=== PATIENT | female | born 1975 | race Caucasian/White ===

== ENCOUNTER 2021-10-22 19:12 | Emergency (ER) | payer OTHER, BC ==
[~2021-10-22] VITALS: Ht 162.6 cm; Wt 75.8 kg
--- OUTSIDE RECORDS SUMMARY | 2021-10-22 19:20 | XMS ---
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 EFrank VISIT COUNT (12 MO.) 1 [facility] [place] [address] ESPERANZA Arellano Leti TOTAL 2 NOTE: Visits indicate total known visits. ED/UCC VISIT TRACKING (12 MO.) 10/22/2021 19:12 ESPERANZA Guillory OR TYPE: Emergency COMPLAINT: - WOUND CHECK 10/21/2021 20:52 [facility] [place] TYPE: Emergency DIAGNOSES: - DOG BITE LEFT ANKLE - Bitten by dog, initial encounter - Laceration without foreign body, unspecified ankle, initial encounter INPATIENT VISIT TRACKING (12 MO.) No inpatient visits to display in this time frame [email or web address]
[2021-10-22] MEDS ORDERED: ONE DAILY WOME1 EACH PO (20:43)
[2021-10-22] MEDS ORDERED: LIPITOR20 MG PO (20:44)
[2021-10-22] MEDS ORDERED: TRAZODONE HCL50 MG PO (20:44)
== END 2021-10-22 23:18 | disposition home or self-care (01) ==
LOC: ED 19:12
DX: S91.052A Open bite, left ankle, initial encounter (principal); W54.0XXA Bitten by dog, initial encounter; E78.00 Pure hypercholesterolemia, unspecified; Z79.899 Other long term (current) drug therapy
CPT/HCPCS: 99283; A9270

== ENCOUNTER 2021-10-30 10:43 | Inpatient (IN) | payer BC ==
[~2021-10-30] VITALS: Ht 162.6 cm; Wt 77.5 kg
--- NOTE | ~2021-10-30 | OR ---
[facility] [address] [place], [place] [address] Draft DATE OF OPERATION: 10/30/2021 SURGEON: Bertrand Rg MD PREOPERATIVE DIAGNOSES: 1. Dog bite injury to left ankle. 2. Infection of ankle and necrotic tissue of dog bite wound to ankle. POSTOPERATIVE DIAGNOSES: 1. Dog bite injury to left ankle. 2. Infection of ankle and necrotic tissue of dog bite wound to ankle. 3. Complete disruption of Achilles tendon with inflamed and likely infected soft tissue. PROCEDURES: 1. Exam under anesthesia. 2. Debridement of skin, fat, muscle and portion of tendon of left ankle. 3. Pulsed irrigation lavage (low pressure) of wound. 4. Attempted Achilles tendon repair (abandoned). 5. Wound VAC application. ANESTHESIA: Spinal anesthetic with IV sedation, Kerline aHrdwick CRNA INDICATIONS: This 46-year-old woman suffered a dog bite injury to the left ankle by a pit bull in [place], [place] on October 21. She was seen in the [facility] and given antibiotic prescription and a tetanus shot. She had increasing pain and presented to [facility] Room and evaluated by Dr. Barrera on October 22, 2021 where Augmentin antibiotic was prescribed though not available locally at her pharmacy. She subsequently saw RYANN Stacy at [facility] where she was recognized to have a very foul-smelling wound. Wound packing had been in place. She was referred to me and I saw her on an urgent walk-in basis today where she was found to have foul smelling wound necrosis and high suspicion for probable Achilles tendon injury in addition to soft tissue injury and infection. She does have swelling on the dorsum of her foot and findings highly suggestive of necrotic tissue requiring debridement and so forth. She has been directly admitted to the hospital, begun on antibiotic meropenem. Lab studies evaluated and now to undergo exam under anesthesia, debridement, irrigation, PATIENT NAME: FEDERICO TERESA OPERATIVE REPORT DATE OF : 75 REPORT #: [id number] PHYSICIAN: BERTRAND RG MD PCP: RALEIGH MADRID PA-C REPORT IS CONFIDENTIAL AND NOT TO BE RELEASED WITHOUT AUTHORIZATION [facility] [address] [place], [place] [address] Draft and other indicated procedures. The patient understands the risk of bleeding, infection, failure to control the problem, long-term disability, Achilles tendon is noted to be transected and other unforeseen complications not readily apparent at this time. Understand this, she wished to proceed. FINDINGS: There were multiple punctures in the posterior aspect of the left ankle area. A bridge of tissue the underlying dominant injury which included a complete transection of the Achilles tendon. Necrotic tissue was associated with this as was infection most likely. Complete debridement to viable tissue was undertaken. Only a small amount of Achilles tendon required debridement, though it clearly was nonviable and likely secondarily infected. An attempt at the Achilles tendon repair with a Worcester stitch was unsuccessful as it may have been predicted and ultimately the remnant of the Achilles tendon was secured with a marking suture allowed to retreat beneath the subcutaneous space proximally. That associated with the ankle itself had a Prolene stitch attached as well. A bridge of soft tissue that remained was salvaged as it appeared viable, though it may be threatened ultimately. A wound VAC dressing was ultimately applied. DESCRIPTION OF PROCEDURE: The patient was brought to the operating room, given a spinal anesthetic and placed in the prone cookie-knife position. Antibiotic meropenem had been initiated. In the prone position, the dressing over the ankle was removed and photograph was taken on available technology. The wound was disengage to have some packing material and had extremely foul smell. She was prepared with a Betadine based solution and draped sterilely. Examination showed mucopurulent discharge and obviously necrotic fatty tissue and muscle tissue. There are three dominant lacerations with a bridge of tissue between the largest. The bridge of tissue quite clearly obscured the Achilles tendon and it was divided anatomically to allow for its survival likely. Upon doing this, the wound could be fully evaluated and clearly showed complete transection of the Achilles tendon in the distal most portion. The tendon was elevated and gently debrided of some necrotic tissue. Gram stain and cultures were obtained of the depths of the wounds. The necrotic tissue was debrided, which included portions of skin, part of the tendon of the Achilles though sparing as much as possible as well as the base of the wound including fatty tissue and so on. Once fully debrided of necrotic tissue, a pulse preparation plant supervisor at a low setting was used to cleanse the wound both beneath the proximal flap and elsewhere. Once completely cleansed, the wound appeared to be completely viable and without gross evidence of infection or necrosis. PATIENT NAME: FEDERICO TERESA OPERATIVE REPORT DATE OF : 75 REPORT #: [id number] PHYSICIAN: BERTRAND RG MD PCP: RALEIGH MADRID PA-C REPORT IS CONFIDENTIAL AND NOT TO BE RELEASED WITHOUT AUTHORIZATION [address] [address] Draft Given the length of time since her transected tendon and in the face of inflammation, edema and likely infection, tendon repair at this time was deemed unlikely. Nevertheless, an attempt was undertaken with 0 Prolene suture in a Chaya suture technique to reattach the tendon to the talar area with significant plantar flexion to take tension off the repair. It quickly disrupted from its repair side and it was clear that definitive repair would likely require a graft or other method particularly in the face of recent infection and inflammation. The Prolene suture is allowed to remain with the newtok tendon proximally and at the insertion site on the talus inferiorly. A flap of tissue that remained was considered viable for wound coverage and was secured with interrupted 3-0 nylon suture. Portions of the wound that could be reasonably approximated without hazard of infection were undertaken. The resultant defect was approximately a 5 x 5 cm. In the lateral aspect to the area already operated on was a linear laceration, this too was debrided in a similar way, irrigated and not able to be closed primarily. The wound VAC dressing was deemed most appropriate for management at this point. The sponge was cut to appropriate size and configuration for both the wounds and the bridge of sponge applied over a small OpSite between the two areas in question. The wound VAC was applied 220 mm continuous pressure and held well. The patient was ultimately returned to the supine position, transferred to recovery room in good condition having suffered no complications. Sponge, needle, and instrument counts were reported as correct x3. MD GONZALEZ Tian/RENÉE /[id number] cc: RYANN Stacy MD Chloe K Norris, PA-C Copies: JUSTINA BARRERA MD PATIENT NAME: FEDERICO TERESA OPERATIVE REPORT DATE OF : 75 REPORT #: [id number] PHYSICIAN: BERTRAND RG MD PCP: RALEIGH MADRID PA-C REPORT IS CONFIDENTIAL AND NOT TO BE RELEASED WITHOUT AUTHORIZATION [address] [place], [place] [address] Draft RALEIGH MADRID PA-C ~ PATIENT NAME: FEDERICO TERESA OPERATIVE REPORT DATE OF : 75 REPORT #: [id number] PHYSICIAN: BERTRAND RG MD PCP: RALEIGH MADRID PA-C REPORT IS CONFIDENTIAL AND NOT TO BE RELEASED WITHOUT AUTHORIZATION
[~2021-10-30 10:43] MED LIST: LIPITOR20 MG PO; ONE DAILY WOME1 EACH PO; TRAZODONE HCL50 MG PO
--- NOTE | 2021-10-30 11:31 | NUR ---
PT DIRECT ADMIT FOR SURGERY TO LLE DOG BITE. PT ASSESSMENT COMPLETED. PT STATES DRESSING CHANGE COMPLETED EARLIER TODAY. WOUND IS COVERED WITH GAUZE AND COBAN. CALL LIGHT WITHIN REACH.
--- NOTE | 2021-10-30 11:40 | NUR ---
RT COLLECTED RAPID COVID 19 SWAB WITH NO COMPLICATIONS AT THIS TIME.
--- NOTE | 2021-10-30 15:30 | NUR ---
10/30/21 1530 Kimber Claudio 1504 PT ARRIVED IN PACU SLEEPY WITH NO C/O'S. WOUND VAC IN PLACE TO L ANKLE WITH SUCTION SET AT 120MMHG. 1515 C/O SORE BACK. REPOSITIONED IN BED.
--- NOTE | 2021-10-30 16:14 | NUR ---
PT RETURNED FROM SURGERY. WOUND VAC TO LLE WITH LLE ELEVATED. IV FLUIDS RUNNING AT 125ML/HR. PT IS A/O, RESPIRATIONS EVEN AND REGULAR. DENIES NEEDS ATT.
--- NOTE | 2021-10-30 17:40 | NUR ---
LEFT FOOT ASSESSMENT COMPLETED. WOUND VAC INTACT AND SUCTIONING. +2 EDEMA PRESENT. CMS INTACT. VITALS STABLE. TORADOL ADMIN FOR 6/10 THROBBING LEFT FOOT PAIN. WILL CONTINUE TO MONITOR.
--- NOTE | 2021-10-30 18:16 | NUR ---
TO PT ROOM TO ANSWER CALL LIGHT. PT ASSISTED TO BEDSIDE COMMODE. PT NWB TO LLE. TRANSFERS WELL WITH ONE PERSON ASSIST. WOUND VAC RUNNING. IV FLUIDS RUNNING. CALL LIGHT WITHIN REACH.
--- NOTE | 2021-10-30 19:02 | NUR ---
SHIFT REPORT RECEIVED FROM DAYSHIFT RN LALO AND DANIELLE AT BEDSIDE. pt AWAKE AND RESTING IN BED, LLE ELEVATED IN BED WITH PILLOW, CONT. WOUND VAC IN PLACE TO 120MMHG. SCANT SEROSANGUINEOUS DRAINAGE IN CANISTER. WOUND VAC DRESSING WNL, +2 EDEMA NOTED IN LEFT ANKLE/FOOT. pt REPORTS TOLERABLE PAIN, DID NOT RATE. IV SITE WNL, FLUIDS INFUSING DIRECTED. NO NEEDS OR CONCERNS VERBALIZED, CALL LIGHT IN REACH.
--- NOTE | 2021-10-30 20:45 | NUR ---
ASSESSMENT COMPLETE, SCHEDULED IV ABX INFUSING DIRECTED VIA Y-SITE WITH MAINTENACNE FLUIDS. IV SITE WNL, BRISK BLOOD RETURN NOTED. pt A/OX4, SBA TO BSC TO VOID AND BACK TO BED. pt NON WT BEARING PER MD ORDERS, TOLERATED WELL. pt REPORTS INTEREST IN GETTING "A BOOT IF THE DOCTOR LETS ME". pt HAS A PT CONSULT REGARDING CRUTCHES, pt REPORTS SHE HAS CRUTCHES AT HOME. pt REPORTS PAIN TOLERABLE AT 2-3/10, DENIES NEED FOR PAIN MEDICATION. NO CHANGES TO WOUND VAC, LLE REMAINS ELEVATED. STRONG BILATERAL PEDAL PULSES NOTED, pt REPORTS SHE "IS STARTING TO GET FEELING BACK". CALL LIGHT IN REACH, JUICE AND FRESH WATER PROVIDED.
--- NOTE | 2021-10-30 23:35 | NUR ---
discussed scheduled toradol with jens from telepharmacy, pt given a 30mg dose in or and another 30mg dose on dayshift. kidney labs wnl, per jens from telepharmacy okay to give ordered 30mg dose. new bag iv fluids hung and infusing as directed, iv site wnl. no additional needs or concerns verbalized. cpox remains in place, spo2 and hr wnl. call light in reach.
--- NOTE | 2021-10-31 00:44 | NUR ---
iv abx complete, iv site remains wnl. iv maintenance fluids continue to infuse as directed. wound vac battery low, now charging into wall. pt resting in bed with eyes closed, rr even and unlabored. no distress noted. call light in reach, cpox in place, hr wnl, spo2 upper 90's on ra.
--- NOTE | 2021-10-31 02:23 | NUR ---
VSS AND I&O'S COMPLETE. IV SITE WNL, IV FLUIDS AND IV ABX INFUSING WNL. pt AWOKE TO VOICE, ENCORAGED TO TAKE DEEP BREATHS WHEN AWAKE. IS ALSO AT BEDSIDE AND ENCOURAGED TO USE, pt VERBALIZED UNDERSTANDING. pt UP TO VOID STAND PIVOT, 800MLS OUTPUT NOTED. CMS INTACT TO BLE, +2 EDEMA REMAINS NOTED TO LEFT ANKLE/FOOT. ELEVATED ABOVE HEART PER MD ORDERS, WOUND VAC REMAINS WNL. NO ADDITIONAL NEEDS, CALL LIGHT IN REACH.
--- NOTE | 2021-10-31 04:59 | NUR ---
pt HAD A LUPE OVERALL, SLEPT WELL THIS SHIFT. VSS, CPOX IN PLACE. pt POST-OP FOR I&D OF LEFT ANKLE/FOOT R/T INFECTED DOG BITE. A/OX4, VSS. PAIN CONTROLLED WITH SCHEDULED TORADOL. IV FLUIDS INFUSING W/ SCHEDULED IV ABX. pt VOIDING QS. TOLERATING REGULAR DIET, ENCOURAGE PO INTAKE. WOUND VAC TO LEFT ANKLE/FOOT, CONT SUCTION. LLE ELEVATED IN BED WITH PILLOWS. CMS INTACT. pt STAND PIVOT TO BSC, PT ORDER TO EVALUATE FOR CRUTCHES. CALLS APPROPRIATELY. POSSIBLE DC TODAY.
--- NOTE | 2021-10-31 05:40 | NUR ---
SCHEDULED IV TORADOL GIVEN, SEE EMAR. VSS AND I&O'S COMPLETE AND STABLE. pt UP SBA STAND PIVOT TO BSC AND BACK TO BED. FRESH WATER AND WARM BLANKET PROVIDED, CALL LIGHT IN REACH. NO ADDITIONAL NEEDS. LLE ELEVATED IN BED WITH PILLOWS X2, NO CHANGES TO WOUND VAC.
--- NOTE | 2021-10-31 07:19 | NUR ---
CLARIFIED IF RESULTS FOR BC AND/OR GRAM STAIN WERE IN. PER JARETT FROM LAB, BC ARE STILL PENDING BUT FINAL GRAM STAIN RESULTS WERE POSITIVE FOR GRAM + COCCI AND GRAM - BACILLI. DAYSHIFT RN GABBI AWARE IN REPORT, TO NOTIFY W/ ERMA. COPY ON FRONT OF CHART.
--- NOTE | 2021-10-31 08:42 | NUR ---
MORNING ASSESSMENT COMPLETE. WOUND VAC TO LEFT FOOT, DRESSING INTACT, CONTINUOUS SUCTION AT 120. ELEVATED ON PILLOWS ABOVE OF HEART. PT STATES PAIN IS 5/10 YET TOLERABLE, DENIES NEED FOR INTERVENTION AT THIS TIME. CALL LIGHT IN REACH. PT DENIES FURTHER NEEDS AT THIS TIME.
--- NOTE | 2021-10-31 09:00 | NUR ---
PT LAYING IN BED. VITALS AND IS AND OS COMPLETE. PT ICE PACK GIVEN. NO NEEDS AT THIS TIME. CALL LIGHT WITHIN REACH.
--- NOTE | 2021-10-31 10:44 | NUR ---
Pt sitting up in chair, left leg elevated on three pillows. Pt provided blankets, denies further needs at this time. Call light in reach.
--- NOTE | 2021-10-31 12:20 | NUR ---
Faxed chart to [facility] for auth for NPWT.
--- NOTE | 2021-10-31 12:32 | NUR ---
Pt sitting up in chair eating lunch. Informed patient of updated plan of care and egg crate mattress topper for bed. Pt verbalizing understanding. Denies further needs at this time. Call light in reach.
--- NOTE | 2021-10-31 12:55 | NUR ---
Received signed papers from Dr. Donato and chart faxed to [facility] for insurnce auth for wound vac.
--- NOTE | 2021-10-31 13:15 | NUR ---
PT ALERT, ORIENTED AND SITTING IN CHAIR WITH TV ON. PT PLEASANT, INFORMED ME SHE PLANS ON DC TODAY. SAID HER BACK WAS REALLY HURTING AND NEEDED TO GO HOME SO SHE COULD STAND UP MORE-THAT HELPS. INFORM EDWARD BRANCH OF PT'S STATEMENT AND THAT IV ALARM WAS ON. PT ALSO SAID SHE IS [employer] AND ATTENDS [facility], BUT DID NOT WANT VISIT FROM [facility] AT THIS TIME. GAVE BLESSING AND WILL FOLLOW
--- NOTE | 2021-10-31 14:20 | NUR ---
PT AWAKE IN CHAIR. DENIES NEEDS AT THIS TIME. CALL LIGHT IN REACH.
--- NOTE | 2021-10-31 16:10 | NUR ---
PT RESTING QUIETLY IN CHAIR WITH EYES CLOSED, RESPIRATIONS EVEN AND UNLBAORED. O2 SAT 100% LEFT LEG ELEVATED ON PILLOWS. CALL LIGHT IN REACH.
--- NOTE | 2021-10-31 17:30 | NUR ---
PT RESTING IN RECLINER WITH EYES CLOSED, RESPIRATIONS EVEN AND UNLABORED. LEG LEFT ELEVATED ON THREE PILLOWS, PT RECLINED. CALL LIGHT IN REACH.
--- NOTE | 2021-10-31 18:49 | NUR ---
PT C/O 09/18 FOOT PAIN, REQUESTED AND GIVEN PRN MOTRIN. EGG CRATE MATTRESS PROVIDED FOR BACK COMFORT. PT DENIES FURTHER NEEDS AT THIS TIME. CALL AMBER EASTMAN.
--- NOTE | 2021-10-31 19:35 | NUR ---
RECEIVED REPORT FROM GABBI @1910, PT IS LAYING IN BED. WOUND VAC RUNNING CONTINUOUSLY AT 120 MMHG, DRESSING INTACT. PT REPORTS PAIN 10/10 IN LEFT FOOT. PRN PERCOCET GIVEN (SEE EMAR). CALL LIGHT WITHIN REACH, WARM BLANKET PROVIDED, NO FURTHER NEEDS AT THIS TIME.
--- NOTE | 2021-10-31 20:00 | NUR ---
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 PT STATES PAIN HAS RESOLVED TO 1/10 IN LEFT FOOT. POSITIONED PILLOWS TO MAINTAIN FOOT ELEVATION. LEFT FOOT HAS SLIGHT WARMTH WITH +2 PITTING EDEMA. FOAM DRESSING REMAINS INTACT AND WOUNDVAC RUNNING CONTINUOUSLY AT 120 MMHG. VSS. PT REPORTS NO DIZZINESS OR NAUSEA. PT REPORTS NO NUMBNESS/TINGLING IN EXTREMETIES AND STRENGTH INTACT. VOIDING QUANTITY SUFFICIENT. CALL LIGHT WITHIN REACH, NO FURTHER NEEDS AT THIS TIME.
--- NOTE | 2021-10-31 21:15 | NUR ---
SCHEDULED IV ABX INFUSING DIRECTED, IV SITE WNL AND FLUSHES EASILY. SCHEDULED EVENING TRAZODONE ALSO GIVEN- SEE EMAR. pt THEN UP SBA TO BSC TO VOID, BACK TO BED. NO ADDITIONAL NEEDS, CALL LIGHT IN REACH.
--- NOTE | 2021-10-31 22:45 | NUR ---
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 PT IS RESTING WITH EYES CLOSED. RR EVEN AND UNLABORED. NO SIGNS OF DISTRESS. CALL LIGHT WITHIN REACH.
--- NOTE | 2021-11-01 00:55 | NUR ---
CLINICAL JUDGEMENT TO ALLOW PT TO REST, PUMP HAS BEEN SET TO TKO. PT STILL RESTING WITH EYES CLOSED. RESPIRATIONS ARE EVEN AND UNLABORED. NO DISTRESS. CALL LIGHT WITHIN REACH.
--- NOTE | 2021-11-01 02:22 | NUR ---
PT IS RESTING IN BED WITH EYES CLOSED. RESPIRATIONS ARE EVEN AND UNLABORED. NO DISTRESS. CALL LIGHT WITHIN REACH.
--- NOTE | 2021-11-01 03:00 | NUR ---
IN ROOM TO HANG NEW BAG OF MERREM (SEE EMAR). PT RESTING IN BED WITH EYES CLOSED. BREATHS ARE EVEN AND UNLABORED. NO SIGNS OF DISTRESS. WOUND VAC RUNNING WNL AT 120 MMHG CONTINUOUSLY. CALL LIGHT WITHIN REACH.
--- NOTE | 2021-11-01 06:59 | NUR ---
PERFORMED MORNING ASSESSMENT/VITALS. BP REMAINS SOFT SYSTOLIC. NO ACUTE CHANGES TO ASSESSMENT. CALLED TO NUTRITION TO UPDATE PT REQUEST FOR YOGURT/GRANOLA FOR BREAKFAST. PILLOWS REPOSITIONED UNDER LEFT FOOT. FOOT IS WARM WITH +2 EDEMA AND FAINT PULSES. WOUNDVAC ON CONTINUOUS SUCTION AT 120 MMHG WITH SCAN SEROSANGUINOUS OUTPUT. PAIN IS AT 5/10 IN LFT FOOT, PT REQUESTS IBUPROFEN. CALL LIGHT WITHIN REACH, WILL CONTINUE TO MONITOR.
--- NOTE | 2021-11-01 07:02 | NUR ---
UNEVENTFUL NIGHT FOR PT. PT SLEPT MAJORITY OF THE NIGHT. VSS. BLOOD PRESSURES RUN ON SOFT SIDE RANGING FROM LOW 100'S TO 90'S. PT GIVEN PRN PERCOCET AT BEGINNING OF THE SHIFT FOR 10/10 PAIN IN LEFT FOOT, AND IBUPROFEN THIS AM FOR 5/10 PAIN IN LEFT FOOT, MANAGED WELL WITH PRN MEDS. 2+ EDEMA AND SLIGHT WARMTH PRESENT IN LEFT FOOT. WOUND VAC RUNNING CONTINUOUSLY AT 120 MMHG W/SCANT SEROSANGUINOUS OUTPUT AND FOAM DRESSING IS WNL. CMS IN INTACT.
--- NOTE | 2021-11-01 07:05 | NUR ---
REPORT RECEIVED FROM EDWARD KINSEY. ALL QUESTIONS ANSWERED.
--- NOTE | 2021-11-01 08:21 | NUR ---
PATIENT IN BED. REFUSED AM CARE FOR RIGHT NOW. PT HAS NO OTHER NEEDS AT THIS TIME. CALL LIGHT WITHIN REACH.
--- NOTE | 2021-11-01 09:44 | NUR ---
PATIENT LYING IN BED. VITALS AND I/O'S COMPLETED. NO OTHER NEEDS AT THIS TIME. CALL LIGHT WITHIN REACH.
--- NOTE | 2021-11-01 10:14 | NUR ---
Pt c/o 08/18 foot pain, given prn percocet. Pt denies further needs at this time. Call light in reach.
--- NOTE | 2021-11-01 11:57 | NUR ---
AMBULATED PT IN CHRISTY TO NURSING STATION AND BACK TO ROOM. PT USED FWW AND WAS NON-WEIGHT BEARING. TOERATED WELL.
--- NOTE | 2021-11-01 12:53 | NUR ---
PT RESTING IN BED, LEFT LEG ELEVATED IN BED ON TWO PILLOWS. PT DENIES NEEDS AT THIS TIME. CALL LIGHT IN REACH.
[2021-11-01] MEDS ORDERED: PERCOCET 10-321 EACH PO (14:54)
[2021-11-01] MEDS ORDERED: AMOX TR-K CLV1 EAC1 PO (14:54)
--- NOTE | 2021-11-01 15:25 | NUR ---
WOUND VAC DRESSING CHANGED. PT TOLERATED FAIRLY. DISCHARGE INSTRUCTIONS GIVEN VERBALLY WELL WRITTEN. PT VERBALIZED UNDERSTANDING WITH NO FURTHER QUESTIONS. IV REMOVED, CATHETER TIP INTACT. DRESSING APPLIED.
--- NOTE | 2021-11-01 16:51 | NUR ---
Dr Tate made aware of gram stain results.
--- NOTE | 2021-11-04 09:32 | HP ---
[facility] [address] [place], [place] [address] Signed ADMISSION DATE: 10/30/2021 REASON FOR ADMISSION: Left ankle dog bite October 21, 2021 with infection and necrotic wound.. 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 She is but does have a boyfriend. She was jogging in the [place] area where she was attacked by a pit bull that grabbed onto her left ankle. It was rather delayed in its separation and she presented to an emergency room in [place], [place] where she was evaluated. She subsequently was seen at [facility] emergency room on October 22, 2021, evaluated by Dr. Barrera. Evaluation at that time showed her to be afebrile. A large open bite to the left posterior ankle was noted. She was prescribed Augmentin antibiotic and given Vicodin medication. The dog was never evaluated for rabies and the dog is unknown to anybody. She was advised to contact [place] police to consider the rabies status of the dog. To my knowledge that had not been undertaken. The patient was considered a patient of Faith Nergon generally, but she did see Mague Tracey apparently yesterday for which further evaluation was requested by Surgery. I saw her on a walk-in basis in the office. The patient has been afebrile and currently her temperature is 96.6. She has rather extreme pain. She is mobile through our office with a wheelchair currently. She denies any prior medical problems, specifically no diabetes. She does have dyslipidemia. CURRENT MEDICATIONS: Include atorvastatin 20 mg daily, trazodone 50 mg daily and [place] 5/325 one-half tablet p.o. q.a.m. PRIOR SURGICAL HISTORY: Includes three C-sections. SOCIAL HISTORY: She does not smoke or drink alcohol. She has an IUD. Her last menstrual period was August 09, 2021. PHYSICAL EXAMINATION: Electronically Signed By: BERTRAND RG MD 11/04/21 0932 PATIENT NAME: FEDERICO TERESA HISTORY AND PHYSICAL DATE OF : 75 REPORT #: [id number] PHYSICIAN: BERTRAND RG MD PCP: RALEIGH MADRID PA-C REPORT IS CONFIDENTIAL AND NOT TO BE RELEASED WITHOUT AUTHORIZATION [facility] [address] [place], [place] [address] Signed GENERAL: This is a pleasant woman who looks to be not systemically toxic at this time. VITAL SIGNS: Temperature is 96.6, pulse 80, blood pressure 98/73. NECK: Trachea is midline. CHEST: Clear. HEART: Regular. EXTREMITIES: Examination of left posterolateral ankle shows a necrotic wound. There is swelling over the dorsum of the foot. Foul smell is noted. There is wound packing in the wound. There is a possible injury to the Achilles tendon, though has not completely . ASSESSMENT: The patient has necrosis within the dog bite wound. She has cellulitis associated with this including swelling of the dorsum of the foot. It is unclear if she has an Achilles tendon injury as well. Examination of the foot for plantar flexion and dorsiflexion shows it to be rather weak. No doubt limited in part by pain. The patient needs admission to the hospital, broad-spectrum antibiotics and examination under anesthesia with debridement and irrigation of the wound. A more thorough assessment of the health of the tendon will be forthcoming. Discussed all this with the patient. Notably, the patient was given tetanus toxoid according to her report and although the status of the dog as regards to rabies is unknown, she would be considered low risk considering the scenario of the attack. MD GONZALEZ Tian/ARISTIDESL /[id number] cc: Dr. Mague Barrera MD Electronically Signed By: BERTRAND RG MD 11/04/21 0932 PATIENT NAME: FEDERICO TERESA HISTORY AND PHYSICAL DATE OF : 75 REPORT #: [id number] PHYSICIAN: BERTRAND RG MD PCP: RALEIGH MADRID PA-C REPORT IS CONFIDENTIAL AND NOT TO BE RELEASED WITHOUT AUTHORIZATION [address] [address] Signed Copies: JUSTINA BARRERA MD ~ Electronically Signed By: BERTRAND RG MD 11/04/21 0932 PATIENT NAME: FEDERICO TERESA HISTORY AND PHYSICAL DATE OF : 75 REPORT #: [id number] PHYSICIAN: BERTRAND RG MD PCP: RALEIGH MADRID PA-C REPORT IS CONFIDENTIAL AND NOT TO BE RELEASED WITHOUT AUTHORIZATION
== END 2021-11-01 15:50 | disposition home or self-care (01) | DRG 581 ==
LOC: MS 10:43
PROVIDERS: ADMIT Surgery; ATTEND Surgery
PROC: 0LBT0ZZ Excision of Left Ankle Tendon, Open Approach (ICD-10-PCS; principal; 2021-10-30 13:00)
DX: L03.116 Cellulitis of left lower limb (principal); E78.5 Hyperlipidemia, unspecified; Z79.899 Other long term (current) drug therapy; Z98.890 Other specified postprocedural states; Z20.822 Contact with and (suspected) exposure to COVID-19; S86.02 Laceration of Achilles tendon
CPT/HCPCS: 36415; 80053; 84702; 85025; 87205; 97161; A9270; C9803; J1885; J2001; J2185; J2704; J3010; J7121; U0003

== ENCOUNTER 2021-12-26 03:29 | Emergency (ER) | payer BC ==
[~2021-12-26] VITALS: Ht 162.6 cm; Wt 77.1 kg
[~2021-12-26 03:29] MED LIST changes: +AMOX TR-K CLV1 EAC1 PO; +PERCOCET 10-321 EACH PO
[2021-12-27] MEDS ORDERED: IBUPROFEN600 MG PO (14:42)
[2021-12-27] MEDS ORDERED: OXYCODON-ACETA1 EAC2 PO (14:42)
[2021-12-27] MEDS ORDERED: ACETAMINOPHEN500 MG PO (14:43)
[2021-12-27] MEDS ORDERED: DOXYCYCLINE HY100 MG PO (14:43)
== END 2021-12-26 04:20 | disposition home or self-care (01) ==
LOC: ED 03:29
DX: Z48.817 Encounter for surgical aftercare following surgery on the skin and subcutaneous tissue (principal); E78.00 Pure hypercholesterolemia, unspecified; Z79.899 Other long term (current) drug therapy
CPT/HCPCS: A9270

== ENCOUNTER 2021-12-27 11:26 | Day surgery (SDC) | payer OTHER, BC ==
[~2021-12-27] VITALS: Ht 162.6 cm; Wt 75.0 kg
--- NOTE | 2021-12-27 14:24 | NUR ---
12/27/21 1424 Sheets,Johanna 1410 PT ARRIVED TO PACU ON 6L VIA MASK, PT SITTING IN HIGH FOWLERS. RESP EVEN AND UNLABORED. PT REACTIVE AND DENIES PAIN AND NAUSEA. PT REPORTS MINIMAL MOVEMENT IN FEET, PT EASILY FALLS BACK TO SLEEP. 1415 HOB DECREASED AND O2 REMOVED. PT EASILY FALLS NACK TO SLEEP WITH SNORING NOTED, PT HEAD TUNRED TO SIDE AND DECREASED SNORING NOTED.
[2021-12-27] MEDS ORDERED: IBUPROFEN600 MG PO (14:42)
[2021-12-27] MEDS ORDERED: OXYCODON-ACETA1 EAC2 PO (14:42)
[2021-12-27] MEDS ORDERED: DOXYCYCLINE HY100 MG PO (14:43)
[2021-12-27] MEDS ORDERED: ACETAMINOPHEN500 MG PO (14:43)
--- NOTE | 2021-12-27 15:05 | NUR ---
LE 1455: PT IS BACK TO DS FROM PACU. SHE IS DROWSY UPON ARRIVAL, BUT CAN BE AROUSED. CALL LIGHT WITHIN REACH. WATER ON BEDSIDE TABLE. NO ADDITIONAL NEEDS AT THIS TIME.
--- NOTE | 2021-12-27 15:56 | NUR ---
PT IS MORE ALERT. HER SPINAL HAS RESOLVED. SHE WOULD LIKE JELLO AND PUDDING TO SNACK ON. AFTER SHE EATS HER SNACK SHE WOULD LIKE TO GET UP TO VOID. WATER ON BEDSIDE TABLE. CALL LIGHT WITHIN REACH.
--- NOTE | 2021-12-27 16:29 | NUR ---
KEYLA 1615: PT IS ASSISTED UP OOB WITH STANDY BY ASSIST, PT BEING CAREFUL NOT TO BE PUT WEIGHT ON LEFT SIDE. SHE IS TAKEN TO THE BATHROOM VIA WC, WHERE SHE IS ABLE TO VOID 400MLS OF DARK YELLOW URINE. SHE IS WHEELED BACK TO HER ROOM TO GET DRESSED AND READY TO GO HOME.
--- NOTE | 2021-12-27 16:30 | NUR ---
KEYLA 1625: PT IS GIVEN VERBAL AND WRITTEN DC INSTRUCTIONS. SHE VERBALIZES UNDERSTANDING. QUESTIONS ARE ASKED AND ANSWERED. SHE IS TAKEN TO PERSONAL VEHICLE VIA WC, WHERE SHE IS ABLE TO SAFELY TRANSFER HERSELF.
--- NOTE | 2021-12-28 12:36 | OR ---
[facility] [address] [place], [place] [address] Signed DATE OF OPERATION: 12/27/2021 SURGEON: Bertrand Rg MD PREOPERATIVE DIAGNOSIS: Left posterior ankle wounds x2 (3 x 1 cm left lateral ankle and 4 x 8 cm left posterior ankle). POSTOPERATIVE DIAGNOSIS: Left posterior ankle wounds x2 (3 x 1 cm left lateral ankle and 4 x 8 cm left posterior ankle). PROCEDURES: 1. Debridement and preparation of wound site for split-thickness skin grafting (curettage) left ankle 2. Split-thickness skin graft, left posterior ankle, 32 square centimeters and left lateral ankle 3 sq cm. 3. [place] of split-thickness skin graft right anterolateral thigh. ANESTHESIA: Spinal with IV sedation; Bertrand Jane CRNA INDICATIONS: This 46-year-old woman was attacked by a pit bull last October causing an injury to the posterior ankle. She was seen in the [place] [facility] and [place] [facility] and ultimately referred to me days later with a foul smelling infected wound, which on operative debridement showed complete transection of the Achilles tendon as well as a mushy necrotic, infected Achilles tendon remnant proximally and distally. Debridement was undertaken and wound VAC and dressing changes initiated. She has had progressive improvement and the swelling edema and infective wound has recovered enough at this point with good granulation that definitive coverage of the open wound is possible. A split-thickness skin graft is deemed most optimal. She does have plantar and dorsiflexion despite having loss of the Achilles tendon. Definitive wound closure is anticipated by split-thickness skin grafting today. The patient has had variable compliance with wound care instructions previously, most recently failing to present for wound vac dressing change this past week. Evaluation preoperatively does show good granulation of both the small wound laterally of the ankle and a larger posterior ankle area such that additional wound VAC dressing change and so forth will not be likely of additional practical benefit and thus definitive sking graft Electronically Signed By: BERTRAND RG MD 12/28/21 1236 PATIENT NAME: FEDERICO TERESA OPERATIVE REPORT DATE OF : 75 REPORT #: [id number] PHYSICIAN: BERTRAND RG MD PCP: YOLIS MEDINA PA-C REPORT IS CONFIDENTIAL AND NOT TO BE RELEASED WITHOUT AUTHORIZATION [facility] [address] [place] [id number] Signed closure will proceed at this time. The patient understands the risks of bleeding, infection, cosmetic deformity, failure of the graft, and other unforeseen complications. She understands that immobility of the ankle for at least a week will be necessary so as to allow for avoidance of trauma to the grafted site to optimize chances of graft adherence. She understands all of this and wishes to proceed. FINDINGS: Both wounds were with significant granulation. Both had a fibrinous covering, for which debridement was undertaken with sharp curettage. Skin grafting was undertaken with split-thickness skin graft harvested from the right anterolateral thigh at 0.015 inches thickness in a 1-2 ratio of mesh. [place] were used to secure the graft to the operative sites. The largest site was 4 x 8 cm (32 square centimeters and a smaller 1 x 3 cm) 3 square centimeters. DESCRIPTION OF PROCEDURE: The patient was brought to the operating room and given a spinal anesthetic. Preoperative antibiotic Ancef was given. Sequential compression device stocking was applied to the right side. Preoperative antibiotic Ancef was given. The right anterolateral thigh was prepared with a Betadine based solution as was the left lower extremity up to the knee including the foot. The toes and foot were isolated and sterile draping undertaken with a split sheet on the left and a square off sheet on the right. All equipment was tested for its function prior to any operative intervention. Using a banjo curette, the left lateral ankle wound was curetted to briskly bleeding, good granulation tissue, it was measured as 1 x 3 cm. Epinephrine saline soaked sponge was applied. The posterior ankle was elevated fully, allowing for debridement with a banjo curette as well. The fibrinous peel over the granulating surface was debrided back to a bloody tissue as well and also skin secured with the epinephrine saline soaked sponge. The attention was turned towards the harvest of the graft. Mineral oil was applied to the anterolateral aspect of the right thigh. With a 4 cm wide dermatome shield at 0.015 inches, a single segment of skin was harvested approximately 10 cm in length. The site was covered with epinephrine saline soaked sponge for its hemostatic benefit. The skin graft was placed on the appropriate plastic mesh disk at 1-2 ratio and meshed without difficulty. The bulk of the graft was then applied to the posterior aspect of the ankle by raising the ankle and securing it with clips. Photographs were taken. Electronically Signed By: BERTRAND RG MD 12/28/21 1236 PATIENT NAME: FEDERICO TERESA OPERATIVE REPORT DATE OF : 75 REPORT #: [id number] PHYSICIAN: BERTRAND RG MD PCP: YOLIS MEDINA PA-C REPORT IS CONFIDENTIAL AND NOT TO BE RELEASED WITHOUT AUTHORIZATION [address] [address] Signed A small portion of redundant harvested graft was then applied to the left lateral ankle area similarly with a stapling device. Tisseel (fibrin glue) was then applied to the donor site in the anterolateral thigh after assuring good hemostasis. Two OpSite were ultimately applied to the site. A small amount of fibrin glue was applied to the lateral and posterior ankle grafted sites using the Fine Mist aerosolizer as well. Two recipient sites, adaptic nonadherent gauze was applied, subsequently, fluffed gauze applied and the foot, ankle and calf wrapped with casting soft material. A fiberglass posterior splint was applied to this area and then the foot, ankle, and calf wrapped with 4-inch and subsequently 6-inch Phillip wrap. Pressure was applied to the fiberglass cast to ensure good set up. She was ultimately able to be transferred to the recovery room in good condition, having suffered no known complications. Sponge, needle, and instrument counts reported as correct x3. MD GONZALEZ Tian/RENÉE /[id number] cc: Yolis Medina PA-C Copies: YOLIS MEDINA PA-C ~ Electronically Signed By: BERTRAND RG MD 12/28/21 1236 PATIENT NAME: FEDERICO TERESA OPERATIVE REPORT DATE OF : 75 REPORT #: [id number] PHYSICIAN: BERTRAND RG MD PCP: YOLIS MEDINA PA-C REPORT IS CONFIDENTIAL AND NOT TO BE RELEASED WITHOUT AUTHORIZATION
== END 2021-12-27 16:30 | disposition home or self-care (01) ==
LOC: DS 11:26 → EDSTATUS 13:00 → DS 16:30
PROVIDERS: ATTEND Surgery
PROC: 0HBHXZZ Excision of Right Upper Leg Skin, External Approach (ICD-10-PCS; 2021-12-27)
PROC: 0HRNX74 Replacement of Left Foot Skin with Autologous Tissue Substitute, Partial Thickness, External Approach (ICD-10-PCS; principal; 2021-12-27 13:00)
DX: S91.052A Open bite, left ankle, initial encounter (principal); W54.0XXA Bitten by dog, initial encounter
CPT/HCPCS: 36415; 80053; 85025; J0330; J0461; J0690; J1100; J1644; J1885; J2001; J2250; J2405; J2704; J2765; J3010; J7121